=== PATIENT | female | born 1940 | race Caucasian/White ===

== ENCOUNTER → 2016-08-16 | Outpatient (CLI) | payer OTHER ==
[~2016-08-16] MED LIST: ALPHAGAN P10 ML OP; CENTRUM SILVER1 EAC4 PO; DICLOFENAC SODI75 MG PO; HYZAAR 50-12.51 TAB PO; METFORMIN HCL500 MG PO; NORCO 5-325 TA1 EACH PO; OSTEO BI-FLEX1 EAC1 PO; SIMVASTATIN40 MG PO; TRAMADOL 50 MG50 MG PO; VITAMIN D2000 UNIT PO; VITAMIN E400 UNIT PO; VOLTAREN GEL 1100 G2 TOP; XALATAN2.5 ML OPHTHALMIC
== END ==
LOC: ULTRA 08:49 → RAD 08:49
DX: R92.8 Other abnormal and inconclusive findings on diagnostic imaging of breast (principal)

== ENCOUNTER → 2018-02-09 | Outpatient (CLI) | payer OTHER | LOC: RAD 02:47 | DX: Z12.31 Encounter for screening mammogram for malignant neoplasm of breast (principal) ==

== ENCOUNTER → 2019-03-12 | Outpatient (CLI) | payer OTHER | LOC: RAD 02-13 11:06 → BC 02-13 18:48 → RAD 02-22 14:23 | DX: Z12.31 Encounter for screening mammogram for malignant neoplasm of breast (principal) ==